=== PATIENT | female | born 1990 | race Caucasian/White ===

== ENCOUNTER 2018-02-02 19:23 | Emergency (ER) | payer OTHER ==
[2018-02-02 19:35] VITALS: BP 117/83
--- NOTE | 2018-02-02 20:42 | UC ---
Blaine Collado Natalie, scribed for Cristofer Holbrook MD on 02/02/18 at 2029 . Skin Complaint HPI - HPI Summary HPI Summary: The patient is a 27 y/o F presenting to [facility] c/o red rash on lower left abdomen starting a week ago. The rash started out in clusters of spots, but has started to spread and become more dispersed. There is no pain associated, but the spots are tingling and itchy with blistering. She visited [facility], where she was told she could possibly have chicken pox or shingles. - History of Current Complaint Chief Complaint: UCSkin Time Seen by Provider: 02/02/18 19:56 Stated Complaint: RASH ON STOMACH Hx Obtained From: Patient Hx Last Menstrual Period: 01/30/2018 Onset/Duration: Sudden Onset, Lasting Days, Still Present Onset Severity: Mild Current Severity: Mild Pain Intensity: 0 Pain Scale Used: 0-10 Numeric Location: Discrete - low left abd Aggravating Factor(s): Nothing Alleviating Factor(s): Nothing - Allergy/Home Medications Allergies/Adverse Reactions: Allergies Allergy/AdvReac Type Severity Reaction Status Date / Time doxycycline Allergy Unknown Verified 02/02/18 19:38 Reaction Details gabapentin [From [facility]izant] Allergy Rash Verified 02/02/18 19:38 Home Medications: Home Medications Sertraline HCl [Zoloft] 02/02/18 [History] Review of Systems Constitutional: Other - NEGATIVE: fever Skin: Rash - low left abd with tingling and itchy sensation All Other Systems Reviewed And Are Negative: Yes PMH/Surg Hx/FS Hx/Imm Hx - Surgical History Surgical History: Yes Surgery Procedure, Year, and Place: forearm surgeries-2000. hymenal surgery 2004 - Family History Known Family History: Negative: Cardiac Disease, Diabetes - Social History Alcohol Use: Weekly Substance Use Type: None Smoking Status (MU): Never Smoked Tobacco Physical Exam Triage Information Reviewed: Yes Appearance: Well-Appearing, No Pain Distress Vital Signs: Initial Vital Signs Temp 97.8 F 02/02/18 19:29 Pulse 88 02/02/18 19:29 Resp 18 02/02/18 19:29 BP 117/83 02/02/18 19:29 Pulse Ox 99 02/02/18 19:29 Vital Signs Reviewed: Yes Eyes: Positive: Other: - EOMI, TERESE ENT: Positive: Normal ENT inspection Neck: Positive: Supple, Nontender Respiratory: Positive: Other: - CTA, breath sounds present Cardiovascular: Positive: RRR Abdomen Description: Positive: Nontender, Soft Bowel Sounds: Positive: Present Musculoskeletal Exam: Normal Musculoskeletal: Positive: Strength Intact, ROM Intact Neurological: Positive: Other: - normal, sensory/motor intact, A&O x3 Psychological: Positive: Other: - affect/mood appropriate Skin: Positive: Other - warm, color reflects adequate perfusion, dry, vesicular rash on left low abdomen 3 mm in diameter Course/Dx - Course Course Of Treatment: Medications reviewed. Allergies noted. BY THE DISTRIBUTION OF THE RASH WITH SMALL VESICLES, IT COULD BE SHINGLES. THE VESICLES DO NOT HAVE DIMPLES SO MOLLUSCUM IS LESS LIKELY. THE VZV CX THAT WAS ATTEMPTED DID NOT GET MUCH IF ANY FLUID FROM THE VESICLES AND SO, IT MAY NOT BE AN ADEQUATE SAMPLE. REGINA IS GOING TO [facility] IN 3 DAYS. RX VALACYCLOVIR 1GM TID X 7 DAYS. F/U WITH [facility]. - Diagnoses Provider Diagnoses: RASH Discharge - Sign-Out/Discharge Documenting (check all that apply): Discharge - Discharge Plan Condition: Stable Disposition: HOME Discharge Disposition Comment: The pt will be discharged home. Prescriptions: ValACYclovir (*) [Valtrex 1 GM(*)] 1 gm PO TID #21 tab Patient Education Materials: Acute Rash (ED) Referrals: [facility] [Primary Care Provider] - Additional Instructions: FOLLOW UP WITH [facility] GET RECHECKED FOR ANY WORSENING OF YOUR CONDITION OR QUESTIONS OR CONCERNS. - Billing Disposition and Condition Condition: STABLE Disposition: HOME The documentation as recorded by the Blaine trinh Natalie accurately reflects the service I personally performed and the decisions made by me, Cristofer Holbrook MD.
== END 2018-02-02 20:24 | disposition home or self-care (01) ==
LOC: UCEAST 19:23
DX: R21 Rash and other nonspecific skin eruption (principal); Z88.3 Allergy status to other anti-infective agents; Z88.8 Allergy status to other drugs, medicaments and biological substances
CPT/HCPCS: 87529; 87798; 99212; G0463

== ENCOUNTER 2018-03-09 20:46 | Emergency (ER) | payer OTHER ==
--- NOTE | 2018-03-09 20:55 | UC ---
Lower Extremity/Ankle HPI - HPI Summary HPI Summary: Pt presents with right ankle pain. She tells me that she fell out of a tree on and laded awkwardly on their right ankle. Since that time she has done RICE therapy. At rest pain is 3/10. When active 8/10. Her friend gave her a pair of crutches to use and she has been using those and bearing as little weight as possible. - History of Current Complaint Stated Complaint: R ANKLE INJURY Time Seen by Provider: 03/09/18 20:55 Hx Obtained From: Patient Hx Last Menstrual Period: 01/30/2018 Onset/Duration: Sudden Onset Severity Initially: Moderate Severity Currently: Moderate Pain Intensity: 6 Pain Scale Used: 0-10 Numeric Aggravating Factor(s): Standing, Ambulation Alleviating Factor(s): Rest Able to Bear Weight: Yes - Allergies/Home Medications Allergies/Adverse Reactions: Allergies Allergy/AdvReac Type Severity Reaction Status Date / Time doxycycline Allergy Unknown Verified 03/09/18 21:00 Reaction Details gabapentin [From [facility]iz[facility]] Allergy Rash Verified 03/09/18 21:00 PMH/Surg Hx/FS Hx/Imm Hx - Additional Past Medical History Additional PMH: ADHD Anxiety Previously Healthy: Yes - Surgical History Surgical History: Yes Surgery Procedure, Year, and Place: forearm surgeries-2000. hymenal surgery 2004 - Family History Known Family History: Negative: Cardiac Disease, Diabetes - Social History Occupation: Employed Full-time Lives: With Family Alcohol Use: Weekly Substance Use Type: None Smoking Status (MU): Never Smoked Tobacco Review of Systems Constitutional: Negative Skin: Negative Respiratory: Negative Cardiovascular: Negative Neurovascular: Negative Musculoskeletal: Other: - Right ankle pain Neurological: Negative All Other Systems Reviewed And Are Negative: Yes Physical Exam - Summary Physical Exam Summary: GENERAL: NAD. WDWN. No pain distress. SKIN: No rashes, sores, lesions, or open wounds. NECK: Supple. Nontender. No lymphadenopathy. CHEST: No accessory muscle use. Breathing comfortably and in no distress. CV: RRR. Without m/r/g. Pulses intact PT and DP. Brisk cap refill. MSK: TTP over lateral and medial malleolus and navicular. Moderate edema about ankle. Moderate ecchymosis at lateral aspect of foot. Significant pain with dorsiflexion and plantar flexion. NEURO: Alert. Sensations intact and symmetric B/L LEs PSYCH: Age appropriate behavior. Triage Information Reviewed: Yes Procedures - Splinting Location: right ankle Hand-Made Type: orthoglass Splint: and sugar tong Pre-Proc Neuro Vasc Exam: normal Post-Proc Neuro Vasc Exam: normal Lower Extremity Course/Dx - Course Course Of Treatment: Ankle XR: IMPRESSION: Atypical coronal oriented nondisplaced intra-articular fracture through the. posterior process of the talus. Pt placed in sugar tong and posterior splint. Provided crutches to use and non weight bearing. F/u with Ortho tomorrow. - Differential Dx/Diagnosis Provider Diagnoses: closed nondisplaced intra-articular fracture through the posterior process of the right talus Discharge - Sign-Out/Discharge Documenting (check all that apply): Discharge/Admit/Transfer - Discharge Plan Condition: Stable Disposition: HOME Patient Education Materials: Ankle Fracture (DC) Referrals: Raquel VALENZUELA,Angelique Pinto [Primary Care Provider] - Henok Fonseca MD [Medical Doctor] - As Soon As Possible Additional Instructions: If you develop a fever, shortness of breath, chest pain, new or worsening symptoms - please call your PCP or go to the ED. 1) Continue to rest and elevate your ankle as much as possible. Keep your splint clean, dry, and intact. 2) Use your crutches when walking - NO WEIGHT BEARING 3) May take 600-800mg ibuprofen every 6-8 hours as needed for pain 4) Please call Orthopedics tomorrow morning to schedule a follow up appointment - they will most likely want to see you tomorrow. - Billing Disposition and Condition Condition: STABLE Disposition: HOME
[2018-03-09 21:00] VITALS: BP 121/71
--- NOTE | 2018-03-09 21:31 | RAD ---
Indication: RIGHT ankle pain and edema following jumping injury 2 days ago. Comparison: No relevant prior exams available on the [facility] for comparison. Technique: AP, mortise, and lateral views RIGHT ankle. Report: Nondisplaced coronal fracture through the posterior process of the talus extending to both the talocrural and posterior facet of the subtalar joints. Negative for additional fracture. Talocrural joint effusion. Normal articular alignment. Diffuse soft tissue swelling. IMPRESSION: Atypical coronal oriented nondisplaced intra-articular fracture through the posterior process of the talus.
== END 2018-03-09 22:06 | disposition home or self-care (01) ==
LOC: UCEAST 20:46
DX: S92.134A Nondisplaced fracture of posterior process of right talus, initial encounter for closed fracture (principal); W14.XXXA Fall from tree, initial encounter; Y93.9 Activity, unspecified; Y92.9 Unspecified place or not applicable; Z88.1 Allergy status to other antibiotic agents; F90.9 Attention-deficit hyperactivity disorder, unspecified type
CPT/HCPCS: 99212; G0463